=== PATIENT | female | born 1945 | race Caucasian/White ===

== ENCOUNTER 2017-10-22 11:11 | Emergency (ER) | payer OTHER ==
[~2017-10-22] VITALS: Ht 160 cm; Wt 72.6 kg
[2017-10-22 11:18] VITALS: Ht 160 cm; Wt 72.6 kg
[2017-10-22 12:56] VITALS: BP 135/62
== END 2017-10-22 12:55 | disposition home or self-care (01) ==
LOC: ED 11:11
DX: S76.012A Strain of muscle, fascia and tendon of left hip, initial encounter (principal); W01.0XXA Fall on same level from slipping, tripping and stumbling without subsequent striking against object, initial encounter; Y93.89 Activity, other specified; Y92.89 Other specified places as the place of occurrence of the external cause; Y99.8 Other external cause status